=== PATIENT | male | born 1965 | race Caucasian/White ===

== ENCOUNTER 2018-07-17 15:37 | Outpatient (CLI) | payer OTHER ==
--- NOTE | 2018-07-17 18:35 | MRI ---
MR OF THE LEFT KNEE WITHOUT CONTRAST: 07/17/18 INDICATION: Increased left knee pain for two weeks. COMPARISON: None. FINDINGS: No large effusion is evident. There is a soft small semimembranosus-medial gastrocnemius popliteal cy st. The ACL, PCL, MCL, and LCLC are intact. The extensor mechanism is intact. There are small marginal osteophytes affecting all major compartments of the knee. No full thickness articular cartilage defect is grossly evident. There is a horizontally oriented oblique flap tear involving the body of the medial meniscus with a d isplaced flap measuring 6.5 mm in the inferior medial gutter best seen on image 20 of series 7 and im age 4 of series 4. The lateral meniscus is intact. IMPRESSION: 1. Mild osteoarthritic change of the left knee. 2. Medial meniscal tear. POS: OFF
== END 2018-07-17 15:38 | disposition home or self-care (01) ==
LOC: MRI 15:37
PROVIDERS: ATTEND Orthopaedic Surgery
DX: M23.92 Unspecified internal derangement of left knee (principal); M17.12 Unilateral primary osteoarthritis, left knee; S83.242A Other tear of medial meniscus, current injury, left knee, initial encounter

== ENCOUNTER 2021-03-04 14:51 | Outpatient (CLI) | payer BC, OTHER | END 2021-03-04 14:52 | disposition home or self-care (01) | LOC: BICRAD 14:51 | PROVIDERS: ATTEND Family Medicine | DX: M25.512 Pain in left shoulder (principal); M19.012 Primary osteoarthritis, left shoulder | CPT/HCPCS: 71046 ==

== ENCOUNTER 2021-04-11 16:10 | Outpatient (CLI) | payer BC ==
[2021-04-11 17:23] LABS: #Basophils 0.1 10x3/uL (0.0-0.2); #Eosinphils 0.2 10x3/uL (0.0-0.5); #Monocytes 0.7 10x3/uL (0.0-1.1); #Neutrophils 5.4 10x3/uL (1.5-8.4); %Basophils 0.6 % (0.0-2.0); %Eosinophils 2.4 % (0.0-6.0); %Lymphocytes 20.3 % (18.0-47.0); %Monocytes 8.6 % (0.0-10.0); %Neutrophils 67.8 % (40.0-75.0); Hemoglobin 14.1 g/dL (13.5-17.5); Mean Corpuscular HGB CONC 33.7 g/dL (32.0-36.0); Mean Corpuscular Hemoglobin 29.4 pg (27.0-33.0); Mean Corpuscular Volume 87.3 fl (81.2-95.1); Mean Platelet Volume 10.5 fl (7.4-10.4); Platelet Count 189 10x3/uL (150-450); White Blood Cell (WBC) Count 7.9 10x3/uL (3.5-10.5)
[2021-04-11 17:41] LABS: Anion Gap 13 mmol/L (10-20); BUN (Urea Nitrogen) 15 mg/dL (8.4-25.7); Calc. Creatinine Clearance 0 mL/min (70-130); Calcium 10.3 mg/dL (7.8-10.44); Carbon Dioxide 26 mmol/L (22-29); Chloride 105 mmol/L (98-107); Glucose 73 mg/dL (70-105); Potassium 3.9 mmol/L (3.5-5.1); Sodium 140 mmol/L (136-145)
[2021-04-12 13:05] LABS: SARS-CoV-2 PCR by NAA Not Detected (NotDetected)
== END 2021-04-11 16:11 | disposition home or self-care (01) ==
LOC: LABBT 16:10
PROVIDERS: ATTEND Orthopaedic Surgery
DX: Z01.818 Encounter for other preprocedural examination (principal); S46.912A Strain of unspecified muscle, fascia and tendon at shoulder and upper arm level, left arm, initial encounter; Z20.822 Contact with and (suspected) exposure to COVID-19
CPT/HCPCS: 80048; 85025; 93005; 93010; U0003; U0005

== ENCOUNTER 2021-04-14 06:50 | Day surgery (SDC) | payer BC ==
[2021-04-12 13:56] VITALS: BMI 34.2
[2021-04-14] MEDS ORDERED: Clindamycin/D5W 900 mg/50 ml Premix Bag ONE (07:13)
[2021-04-14] MEDS ORDERED: Midazolam HCl 2 mg/2 ml Vial ONE (08:38)
[2021-04-14] MEDS ORDERED: Fentanyl 100 MCG/2 ML VIAL ONE ×4 (08:38→12:07)
[2021-04-14] MEDS ORDERED: Sodium Chloride 0.9% 10 ML ONE (08:38)
[2021-04-14] MEDS ORDERED: traMADol HCl 50 MG TAB PO PRN ×2 (10:00)
[2021-04-14] MEDS ORDERED: Ropivacaine 0.2% 550 ML 550 ML NERVE BLCK SCH (10:00)
[2021-04-14] MEDS ORDERED: HYDROcodone/Acetaminophen 5/325 mg Tablet PO PRN ×2 (10:00)
[2021-04-14] MEDS ORDERED: Zolpidem Tartrate 5 MG TAB PO PRN (10:00)
[2021-04-14] MEDS ORDERED: Promethazine HCl 25 MG/ML VIAL IM PRN (10:00)
[2021-04-14] MEDS ORDERED: Ondansetron PF 4 MG/2 ML Vial IVP PRN (10:00)
[2021-04-14] MEDS ORDERED: Dexamethasone 20 MG/5 ML VIAL ONE (10:09)
[2021-04-14] MEDS ORDERED: Ondansetron PF 4 MG/2 ML Vial ONE ×2 (10:09→13:41)
[2021-04-14] MEDS ORDERED: PROPOFOL 200 MG/20 ML VIAL ONE (10:09)
[2021-04-14] MEDS ORDERED: Ketorolac Tromethamine 30 MG/ML VIAL ONE (10:09)
[2021-04-14] MEDS ORDERED: Bupivacaine HCl 0.5%/Epinephrine 1:200,000/PF 30 ml Vial ONE (10:09)
[2021-04-14] MEDS ORDERED: ePHEDrine 50 MG/ML VIAL ONE (10:09)
[2021-04-14] MEDS ORDERED: Lidocaine 1% PF 5 ML VIAL ONE (10:09)
[2021-04-14] MEDS ORDERED: Rocuronium Bromide 10 MG/ML (10ML VIAL) ONE (10:09)
[2021-04-14] MEDS ORDERED: Glycopyrrolate 0.2 MG/ML 5 ML SYRINGE ONE (10:09)
== END 2021-04-14 14:26 | disposition home or self-care (01) ==
LOC: SDC 06:50
PROVIDERS: ATTEND Orthopaedic Surgery
PROC: 0RNK4ZZ Release Left Shoulder Joint, Percutaneous Endoscopic Approach (ICD-10-PCS; principal; 2021-04-14)
PROC: 0LQ24ZZ Repair Left Shoulder Tendon, Percutaneous Endoscopic Approach (ICD-10-PCS; principal; 2021-04-14)
DX: S46.012A Strain of muscle(s) and tendon(s) of the rotator cuff of left shoulder, initial encounter (principal); M75.42 Impingement syndrome of left shoulder; M19.012 Primary osteoarthritis, left shoulder; I10 Essential (primary) hypertension; E78.5 Hyperlipidemia, unspecified; Z88.0 Allergy status to penicillin; Z88.5 Allergy status to narcotic agent; Z79.899 Other long term (current) drug therapy; X58.XXXA Exposure to other specified factors, initial encounter; Y93.I9 Activity, other involving external motion
CPT/HCPCS: A4306; C1713; J1100; J1885; J2250; J2405; J2704; J2795; J3010; J3490